=== PATIENT | female | born 1960 | race Asian ===

== ENCOUNTER 2021-04-01 23:00 | Inpatient (IN) | payer OTHER, SELFPAY ==
[~2021-04-01] VITALS: Ht 152.4 cm; Wt 63.5 kg
[2021-04-01 23:15] VITALS: BP_SYST 78
[2021-04-01 23:41] LABS: BASOPHILS # (AUTO) 0.1 K/uL (0.0-0.2); BASOPHILS % (AUTO) 0.5 % (0.0-2.0); EOSINOPHILS # (AUTO) 0.2 K/uL (0.0-0.4); HEMATOCRIT 35.6 % (36-48); HEMOGLOBIN 12.1 g/dL (12.0-16.0); LYMPHOCYTES # (AUTO) 3.1 K/uL (1.0-5.5); LYMPHOCYTES % (AUTO) 29.3 % (20.5-51.5); MEAN CORPUSCULAR HEMOGLOBIN 31 pg (27-31); MEAN CORPUSCULAR HGB CONC 34 % (32-36); MEAN CORPUSCULAR VOLUME 90 fL (79.0-98.0); MONOCYTES # (AUTO) 0.6 K/uL (0.0-1.0); MONOCYTES % (AUTO) 6.1 % (1.7-9.3); NEUTROPHILS # (AUTO) 6.5 K/uL (1.8-7.7); NEUTROPHILS % (AUTO) 62.1 % (40.0-70.0); PLATELET COUNT (AUTO) 329 K/uL (130-430); RED BLOOD CELL COUNT(AUTO) 3.97 MIL/uL (4.2-6.2); RED CELL DISTRIBUTION WIDTH 13.2 % (9.0-15.0); WHITE BLOOD COUNT (AUTO) 10.5 K/uL (4.8-10.8)
[2021-04-01 23:59] LABS: CALCIUM 9.5 mg/dL (8.4-11.0); CREATININE 0.82 mg/dL (0.55-1.30); POTASSIUM 3.4 mmol/L (3.5-5.1)
[2021-04-02] MEDS ORDERED: MORPHINE 4 MG INJ. 4 MG/ML VIAL IVP ONE
[2021-04-02] MEDS ORDERED: ONDANSETRON HCL 4 MG/2 ML VIAL IVP ONE
[2021-04-02 00:05] LABS: ALBUMIN 3.7 g/dL (3.4-4.8); TOTAL BILIRUBIN 0.9 mg/dL (0.0-1.0)
[2021-04-02] MEDS ORDERED: fentaNYL CITRATE/PF 100 MCG/2 ML AMP IVP ONE (00:45)
[2021-04-02] MEDS ORDERED: NACL 0.9% 1,000 ML IV ONE ×2 (01:30)
[2021-04-02] MEDS ORDERED: PIPERACILLIN/TAZO 3.375 GM in NS 50 ML IV ONE (01:30)
[2021-04-02] MEDS ORDERED: metroNIDAZOLE 500 mg/NS 100 ML IV ONE (01:30)
[2021-04-02] MEDS ORDERED: HYDROmorphone 1 MG/ML INJ. CARTRIDGE IVP PRN (01:45)
[2021-04-02] MEDS ORDERED: PIPERACILLIN/TAZOBACTAM 3.375 GM/VIAL (ZOSYN) IV ONE (01:52)
[2021-04-02 02:12] LABS: BILIRUBIN,URINE NEGATIVE (NEGATIVE); BLOOD, URINE NEGATIVE (NEGATIVE); CLARITY/URINE CLEAR (CLEAR); COLOR,URINE YELLOW (YELLOW); GLUCOSE,URINE NEGATIVE (NEGATIVE); KETONES,URINE NEGATIVE (NEGATIVE); LEUKOCYTE ESTERASE ,URINE NEGATIVE (NEGATIVE); NITRITE, URINE NEGATIVE (NEGATIVE); PROTEIN URINE TRACE (NEGATIVE); UROBILINOGEN,URINE 0.2 (0.2-1.0)
[2021-04-02] MEDS ORDERED: LORazepam 2 MG/ML VIAL IVP ONE (09:45)
[2021-04-02 11:25] VITALS: BP_SYST 113
[2021-04-02 11:38] VITALS: BP_SYST 113
[2021-04-02] MEDS ORDERED: METOCLOPRAMIDE HCL 10 MG/2 ML VIAL IVP PRN (11:45)
[2021-04-02] MEDS ORDERED: MORPHINE 4 MG INJ. 4 MG/ML VIAL IVP PRN (11:45)
[2021-04-02] MEDS ORDERED: ACETAMINOPHEN 325 MG TABLET PO PRN (11:45)
[2021-04-02 16:39] VITALS: BP_SYST 122
[2021-04-02] MEDS: D5NS 1,000 ML IV SCH (16:48)
[2021-04-02 20:05] VITALS: BP_SYST 101
[2021-04-03 00:46] VITALS: BP_SYST 103
[2021-04-03] MEDS: D5NS 1,000 ML IV SCH ×2 (06:24→22:58)
[2021-04-03 08:00] VITALS: BP_SYST 100
[2021-04-03] MEDS: ONDANSETRON HCL 4 MG/2 ML VIAL IVP PRN (10:14)
[2021-04-03 10:15] LABS: ALBUMIN 3.1 g/dL (3.4-4.8); CREATININE 0.81 mg/dL (0.55-1.30); POTASSIUM 3.1 mmol/L (3.5-5.1); TOTAL BILIRUBIN 3.3 mg/dL (0.0-1.0)
[2021-04-03 10:19] LABS: BASOPHILS % (AUTO) 0.5 % (0.0-2.0); EOSINOPHILS # (AUTO) 0.1 K/uL (0.0-0.4); EOSINOPHILS % (AUTO) 2.6 % (0.0-4.0); HEMATOCRIT 34.6 % (36-48); HEMOGLOBIN 11.8 g/dL (12.0-16.0); LYMPHOCYTES # (AUTO) 1.3 K/uL (1.0-5.5); LYMPHOCYTES % (AUTO) 26.1 % (20.5-51.5); MEAN CORPUSCULAR HEMOGLOBIN 31 pg (27-31); MEAN CORPUSCULAR HGB CONC 34 % (32-36); MEAN CORPUSCULAR VOLUME 91 fL (79.0-98.0); MONOCYTES # (AUTO) 0.3 K/uL (0.0-1.0); MONOCYTES % (AUTO) 5.1 % (1.7-9.3); NEUTROPHILS # (AUTO) 3.4 K/uL (1.8-7.7); NEUTROPHILS % (AUTO) 65.7 % (40.0-70.0); PLATELET COUNT (AUTO) 273 K/uL (130-430); RED BLOOD CELL COUNT(AUTO) 3.81 MIL/uL (4.2-6.2); RED CELL DISTRIBUTION WIDTH 13.1 % (9.0-15.0)
[2021-04-03 10:25] LABS: WHITE BLOOD COUNT (AUTO) 5.1 K/uL (4.8-10.8)
[2021-04-03] MEDS ORDERED: POTASSIUM CHLORIDE 20 MEQ TAB.PRT.SR PO ONE (15:30)
[2021-04-03 16:00] VITALS: BP_SYST 107
[2021-04-03] MEDS ORDERED: fentaNYL CITRATE 250 MCG/5 ML AMP IV ONE (16:20)
[2021-04-03] MEDS ORDERED: PROPOFOL 200MG/ 20ML VIAL (DIPRIVAN) IV ONE (16:20)
[2021-04-03] MEDS ORDERED: ROCURONIUM BROMIDE 10 MG/ML (ZEMURON) IV ONE (16:20)
[2021-04-03] MEDS ORDERED: SUCCINYLCHOLINE CHLORIDE 20 MG/ML(QUELICIN) IVP ONE (16:20)
[2021-04-03] MEDS ORDERED: KETOROLAC TROMETHAMINE 30 MG VIAL IVP ONE (16:20)
[2021-04-03] MEDS ORDERED: ONDANSETRON HCL 4 MG/2 ML VIAL IVP ONE (16:20)
[2021-04-03 20:00] VITALS: BP_SYST 102
[2021-04-04 01:00] VITALS: BP_SYST 107
[2021-04-04 05:45] VITALS: BP_SYST 111
[2021-04-04] MEDS: D5NS 1,000 ML IV SCH ×3 (05:54→23:38)
[2021-04-04 07:43] LABS: ALBUMIN 3.1 g/dL (3.4-4.8); CALCIUM 7.9 mg/dL (8.4-11.0); CREATININE 0.65 mg/dL (0.55-1.30); PHOSPHORUS 2.6 mg/dL (2.7-4.5); POTASSIUM 3.4 mmol/L (3.5-5.1); TOTAL BILIRUBIN 1.9 mg/dL (0.0-1.0)
[2021-04-04 07:45] LABS: BASOPHILS % (AUTO) 0.2 % (0.0-2.0); EOSINOPHILS % (AUTO) 0.3 % (0.0-4.0); HEMATOCRIT 33.5 % (36-48); HEMOGLOBIN 11.5 g/dL (12.0-16.0); LYMPHOCYTES # (AUTO) 1.2 K/uL (1.0-5.5); LYMPHOCYTES % (AUTO) 13.8 % (20.5-51.5); MEAN CORPUSCULAR HEMOGLOBIN 31 pg (27-31); MEAN CORPUSCULAR HGB CONC 35 % (32-36); MEAN CORPUSCULAR VOLUME 90 fL (79.0-98.0); MONOCYTES # (AUTO) 0.5 K/uL (0.0-1.0); MONOCYTES % (AUTO) 5.7 % (1.7-9.3); PLATELET COUNT (AUTO) 274 K/uL (130-430); RED BLOOD CELL COUNT(AUTO) 3.71 MIL/uL (4.2-6.2); RED CELL DISTRIBUTION WIDTH 13.3 % (9.0-15.0); WHITE BLOOD COUNT (AUTO) 8.8 K/uL (4.8-10.8)
[2021-04-04 09:47] VITALS: BP_SYST 115
[2021-04-04 12:36] VITALS: BP_SYST 122
[2021-04-04 17:01] VITALS: BP_SYST 105
[2021-04-04 20:00] VITALS: BP_SYST 115
[2021-04-04] MEDS: MORPHINE 2 MG/ML INJ. SYRINGE IVP PRN (23:34)
[2021-04-04] MEDS ORDERED: POTASSIUM CHLORIDE 20 MEQ/PKT PACKET PO ONE (23:45)
[2021-04-05] VITALS: BP_SYST 101
[2021-04-05] MEDS: D5NS 1,000 ML IV SCH (03:33)
[2021-04-05 06:00] VITALS: BP_SYST 111
[2021-04-05 07:24] LABS: BASOPHILS % (AUTO) 0.4 % (0.0-2.0); EOSINOPHILS # (AUTO) 0.1 K/uL (0.0-0.4); EOSINOPHILS % (AUTO) 1.3 % (0.0-4.0); HEMATOCRIT 35.5 % (36-48); HEMOGLOBIN 11.9 g/dL (12.0-16.0); LYMPHOCYTES % (AUTO) 26.5 % (20.5-51.5); MEAN CORPUSCULAR HEMOGLOBIN 30 pg (27-31); MEAN CORPUSCULAR HGB CONC 34 % (32-36); MEAN CORPUSCULAR VOLUME 90 fL (79.0-98.0); MONOCYTES # (AUTO) 0.6 K/uL (0.0-1.0); MONOCYTES % (AUTO) 7.9 % (1.7-9.3); NEUTROPHILS # (AUTO) 4.9 K/uL (1.8-7.7); NEUTROPHILS % (AUTO) 63.9 % (40.0-70.0); PLATELET COUNT (AUTO) 291 K/uL (130-430); RED BLOOD CELL COUNT(AUTO) 3.92 MIL/uL (4.2-6.2); RED CELL DISTRIBUTION WIDTH 12.9 % (9.0-15.0); WHITE BLOOD COUNT (AUTO) 7.7 K/uL (4.8-10.8)
[2021-04-05] MEDS ORDERED: INDOMETHACIN 50 MG SUPP.RECT RC ONE (08:00)
[2021-04-05 08:03] LABS: ALBUMIN 3.1 g/dL (3.4-4.8); CALCIUM 8.4 mg/dL (8.4-11.0); CREATININE 0.63 mg/dL (0.55-1.30); PHOSPHORUS 3.1 mg/dL (2.7-4.5); POTASSIUM 3.8 mmol/L (3.5-5.1); TOTAL BILIRUBIN 1.2 mg/dL (0.0-1.0)
[2021-04-05 08:06] LABS: HEPATITIS A AB, IgM Negative (Negative); HEPATITIS B CORE AB, IgM Negative (Negative); HEPATITIS B SURFACE AG Negative (Negative)
[2021-04-05 08:20] VITALS: BP_SYST 125
[2021-04-05 08:37] LABS: PROTHROMBIN TIME 10.2 SECS (9.5-12.5)
[2021-04-05] MEDS ORDERED: HYDROmorphone 1 MG/ML INJ. CARTRIDGE IVP PRN (09:45)
[2021-04-05] MEDS ORDERED: NALOXONE HCL 0.4 MG/ML AMP (NARCAN) IVP PRN (09:45)
[2021-04-05] MEDS ORDERED: METOCLOPRAMIDE HCL 10 MG/2 ML VIAL IVP PRN (09:45)
[2021-04-05] MEDS ORDERED: KETOROLAC TROMETHAMINE 30 MG VIAL IVP PRN (09:45)
[2021-04-05 10:06] LABS: ANTI NUCLEAR AB WITH REFLEX Negative (Negative)
[2021-04-05 12:15] VITALS: BP_SYST 118
[2021-04-05] MEDS: ONDANSETRON HCL 4 MG/2 ML VIAL IVP PRN (12:25)
[2021-04-05] MEDS: LR 1,000 ML IV SCH ×2 (12:25→19:31)
[2021-04-05 16:00] VITALS: BP_SYST 111
[2021-04-05 20:00] VITALS: BP_SYST 114
[2021-04-05] MEDS: MORPHINE 2 MG/ML INJ. SYRINGE IVP PRN (23:50)
[2021-04-06] VITALS: BP_SYST 122
[2021-04-06] MEDS: LR 1,000 ML IV SCH (00:20)
[2021-04-06 07:48] LABS: BASOPHILS % (AUTO) 0.3 % (0.0-2.0); EOSINOPHILS # (AUTO) 0.1 K/uL (0.0-0.4); EOSINOPHILS % (AUTO) 0.9 % (0.0-4.0); HEMATOCRIT 33.6 % (36-48); HEMOGLOBIN 11.5 g/dL (12.0-16.0); LYMPHOCYTES # (AUTO) 1.3 K/uL (1.0-5.5); LYMPHOCYTES % (AUTO) 16.5 % (20.5-51.5); MEAN CORPUSCULAR HEMOGLOBIN 31 pg (27-31); MEAN CORPUSCULAR HGB CONC 34 % (32-36); MEAN CORPUSCULAR VOLUME 90 fL (79.0-98.0); MONOCYTES # (AUTO) 0.5 K/uL (0.0-1.0); NEUTROPHILS # (AUTO) 5.8 K/uL (1.8-7.7); NEUTROPHILS % (AUTO) 75.3 % (40.0-70.0); PLATELET COUNT (AUTO) 279 K/uL (130-430); RED BLOOD CELL COUNT(AUTO) 3.75 MIL/uL (4.2-6.2); RED CELL DISTRIBUTION WIDTH 12.9 % (9.0-15.0); WHITE BLOOD COUNT (AUTO) 7.7 K/uL (4.8-10.8)
[2021-04-06 08:20] VITALS: BP_SYST 123
[2021-04-06 08:35] LABS: ALBUMIN 2.9 g/dL (3.4-4.8); CALCIUM 8.3 mg/dL (8.4-11.0); CREATININE 0.64 mg/dL (0.55-1.30); POTASSIUM 3.4 mmol/L (3.5-5.1); TOTAL BILIRUBIN 1.8 mg/dL (0.0-1.0)
[2021-04-06] MEDS ORDERED: POTASSIUM CHLORIDE 20 MEQ TAB.PRT.SR PO ONE (10:15)
[2021-04-06 10:56] VITALS: BP_SYST 116; BP_SYST 123
[2021-04-06 11:27] VITALS: BP_SYST 114
[2021-04-06] MEDS ORDERED: IBUP-1970 PO (11:36)
[2021-04-06 14:12] VITALS: BP_SYST 114
[2021-04-08 12:06] LABS: ANTI-SMOOTH MUSCLE AB 14 Units (0-19)
[2021-04-09 13:07] LABS: ATYPICAL pANCA <1:20 titer (Neg:<1:20); CYTOPLASMIC (C-ANCA) <1:20 titer (Neg:<1:20); CYTOPLASMIC (P-ANCA) <1:20 titer (Neg:<1:20)
== END 2021-04-06 12:25 | disposition home or self-care (01) | DRG 446 ==
LOC: SED 23:00 → SMU 04-02 01:32
PROVIDERS: ADMIT Internal Medicine Hospice and Palliative Medicine; ATTEND Internal Medicine Hospice and Palliative Medicine
PROC: 5A09357 Assistance with Respiratory Ventilation, Less than 24 Consecutive Hours, Continuous Positive Airway Pressure (ICD-10-PCS; 2021-04-04)
PROC: BF111ZZ Fluoroscopy of Biliary and Pancreatic Ducts using Low Osmolar Contrast (ICD-10-PCS; 2021-04-05)
PROC: 0FC98ZZ Extirpation of Matter from Common Bile Duct, Via Natural or Artificial Opening Endoscopic (ICD-10-PCS; principal; 2021-04-05 08:30)
DX: K80.50 Calculus of bile duct without cholangitis or cholecystitis without obstruction (principal); I10 Essential (primary) hypertension; E78.5 Hyperlipidemia, unspecified; E87.6 Hypokalemia; D64.9 Anemia, unspecified; E88.09 Other disorders of plasma-protein metabolism, not elsewhere classified; Z20.822 Contact with and (suspected) exposure to COVID-19; K57.10 Diverticulosis of small intestine without perforation or abscess without bleeding; K76.0 Fatty (change of) liver, not elsewhere classified; Z88.5 Allergy status to narcotic agent; Z79.899 Other long term (current) drug therapy
CPT/HCPCS: 36415; 71100; 74181; 76001; 76376; 76705; 78226; 80053; 80074; 81003; 83516; 83605; 83690; 83735; 84100; 84484; 85025; 85610-TC; 86038; 86256; 87040-TC; 93005; 94660; 96361; 96365; 96368; 96375; 99285; A9537; J0330; J1170; J1885; J2060; J2270; J2405; J2543; J2704; J3010; Q9967